=== PATIENT | female | born 1970 | race Caucasian/White ===

== ENCOUNTER 2017-11-08 17:19 | Emergency (ER) | payer OTHER ==
[~2017-11-08] VITALS: Ht 157.5 cm; Wt 71.7 kg
[2017-11-08 17:21] VITALS: BP 124/63
[2017-11-08] MEDS ORDERED: METF500T PO (17:25)
--- NOTE | 2017-11-08 17:27 | NUR ---
LANA AMBULATED TO BED 6.
--- NOTE | 2017-11-08 17:30 | NUR ---
REPORT GIVEN TO KORIN DARNELL.
--- NOTE | 2017-11-08 17:40 | NUR ---
EPIGASTRIC PAIN RADIATING TO LUQ AND LEFT FLANK AREA STARTING THIS MORNING AROUND 0900 ACCOMPANIED BY NAUSEA AND CHILLS, DENIES VOMITING HX DM
[2017-11-08 18:10] LABS: BASOPHILS % (AUTO) 0.4 % (0.0-2.0); EOSINOPHILS # (AUTO) 0.2 K/uL (0-0.4); EOSINOPHILS % (AUTO) 3.1 % (0.0-4.0); HEMATOCRIT 37.9 % (36-48); HEMOGLOBIN 12.8 g/dL (12.0-16.0); LYMPHOCYTES # (AUTO) 2.6 K/uL (2.5-16.5); LYMPHOCYTES % (AUTO) 35.8 % (20.5-51.1); MEAN CORPUSCULAR HEMOGLOBIN 30 pg (27-31); MEAN CORPUSCULAR HGB CONC 34 g/dL (33-37); MEAN CORPUSCULAR VOLUME 89.4 fL (80-94); MONOCYTES # (AUTO) 0.5 K/uL (0.8-1.0); MONOCYTES % (AUTO) 6.4 % (1.7-9.3); NEUTROPHILS # (AUTO) 3.9 K/uL (1.8-7.7); NEUTROPHILS % (AUTO) 54.3 % (42.2-75.2); PLATELET COUNT (AUTO) 263 K/uL (140-450); RED BLOOD CELL COUNT(AUTO) 4.24 MIL/uL (4.20-5.40); WHITE BLOOD COUNT (AUTO) 7.3 K/uL (4.8-10.8)
[2017-11-08] MEDS ORDERED: NACL 0.9% 1,000 ML IV ONE (18:15)
[2017-11-08] MEDS ORDERED: MORPHINE SULFATE 4 MG/ML SYR IVP ONE (18:15)
[2017-11-08] MEDS ORDERED: ONDANSETRON 4 MG/2 ML VIAL IVP ONE (18:15)
[2017-11-08 18:29] LABS: ANION GAP 10.5 (8-16); CARBON DIOXIDE 29.5 mmol/L (21-32); CREATININE 0.7 mg/dL (0.6-1.3)
[2017-11-08 18:35] LABS: ALBUMIN 3.3 g/dL (3.4-5.0); TOTAL BILIRUBIN 0.2 mg/dL (0.0-1.0)
--- NOTE | 2017-11-08 18:54 | NUR ---
PT APPEARS TO BE SLEEPING IN NO APPEARENT DISTRESS. RR EVEN AND UNLABORED
--- NOTE | 2017-11-08 19:17 | NUR ---
PT TAKEN TO CT SCAN VIA WHEELCHAIR.
--- NOTE | 2017-11-08 19:28 | NUR ---
PT RETURNED FROM CT SCAN VIA WHEEL CHAIR TO ER BED 6.
[2017-11-08 21:00] LABS: APPEARANCE,URINE SL CLOUDY (CLEAR); BILIRUBIN,URINE NEGATIVE (NEGATIVE); BLOOD, URINE NEGATIVE (NEGATIVE); COLOR,URINE YELLOW (YELLOW); LEUKOCYTE ESTERASE ,URINE NEGATIVE (NEGATIVE); NITRITE, URINE NEGATIVE (NEGATIVE); UGLUCOSE 3+ (NEGATIVE)
--- NOTE | 2017-11-08 21:40 | NUR ---
Dr. Ibrahim evaluating patient at bedside.
[2017-11-08 22:35] VITALS: BP 132/69
--- NOTE | 2017-11-08 22:35 | NUR ---
Patient discharged with v/s stable. Written and verbal after care instructions given and explained. Patient alert, oriented and verbalized understanding of instructions. Ambulatory with steady gait. All questions addressed prior to discharge. ID band removed. Patient advised to follow up with PMD. Rx of Ultram given. Patient educated on indication of medication including possible reaction and side effects. Opportunity to ask questions provided and answered.
== END 2017-11-08 22:35 | disposition home or self-care (01) ==
LOC: MED 17:19
DX: K57.90 Diverticulosis of intestine, part unspecified, without perforation or abscess without bleeding (principal); K80.20 Calculus of gallbladder without cholecystitis without obstruction; E11.9 Type 2 diabetes mellitus without complications; Z88.6 Allergy status to analgesic agent; Z79.84 Long term (current) use of oral hypoglycemic drugs
CPT/HCPCS: 36415; 74176; 80053; 81003; 81025; 82150; 83690; 84484; 85025; 93005; 96361; 96374; 96375; 99285; J2270; J2405

== ENCOUNTER 2018-10-11 13:38 | Emergency (ER) | payer SELFPAY ==
[~2018-10-11] VITALS: Ht 157.5 cm; Wt 71.3 kg
[~2018-10-11 13:38] MED LIST: METF500T PO
[2018-10-11 13:49] VITALS: BP 135/73
--- NOTE | 2018-10-11 14:05 | NUR ---
48 Y FEMALE BIB C/O FACIAL PAIN SINCE 06:00 THIS MORNING. PT REPORTS CONSTANT NUMBNESS ON LT SIDE OF FACE AT 6/10. PT STATES IT STARTED WITH HER EYE AND HAS SPREAD ACROSS WHOLE LT SIDE OF FACE TO BACK OF LT SHOULDER. PT REPORTS BLURRY VISION W/ LT EYE. LT EYE IS BLOOD SHOT. FACIAL SYMMETRY INTACT, HAND PATIENT ATTENDANT STRONG/EQUAL, SPEECH CLEAR, AAOX4, GAIT STEADY, PERRLA. VSS AT THIS TIME. BED IS DOWN, LOCKED, BED RAIL X 1, ERMD TO SEE PT. MEDHX:DM
--- NOTE | 2018-10-11 14:10 | NUR ---
ACCU CHECK 260, PT STATES SHE WAS DIAGNOSED IN 2011 WAS DM BUT DOES NOT CURRENTLY TAKE ANY MEDICATIONS
--- NOTE | 2018-10-11 14:16 | NUR ---
PT AMB TO RESTROOM WITH ASSISTANCE FOR URINE SAMPLE
--- NOTE | 2018-10-11 14:23 | NUR ---
DR ARGUETA AT BEDSIDE
--- NOTE | 2018-10-11 14:33 | NUR ---
PT BEING TAKEN TO CT
--- NOTE | 2018-10-11 14:48 | NUR ---
PT RETURNED FROM CT VIA WHEELCHAIR
[2018-10-11] MEDS ORDERED: KETOROLAC 60 MG/2 ML VIAL IM ONE (15:15)
[2018-10-11 15:34] VITALS: BP 142/76
--- NOTE | 2018-10-11 15:34 | NUR ---
Patient discharged with v/s stable. Written and verbal after care instructions given and explained. Patient alert, oriented and verbalized understanding of instructions. Ambulatory with steady gait. All questions addressed prior to discharge. ID band removed. Patient advised to follow up with PMD. Rx of KETOROLAC TROMETHAZINE, MOTRIN given. Patient educated on indication of medication including possible reaction and side effects. Opportunity to ask questions provided and answered.
== END 2018-10-11 15:34 | disposition home or self-care (01) ==
LOC: MED 13:38
DX: B30.9 Viral conjunctivitis, unspecified (principal); E11.9 Type 2 diabetes mellitus without complications; Z79.84 Long term (current) use of oral hypoglycemic drugs; Z88.5 Allergy status to narcotic agent; Z88.6 Allergy status to analgesic agent
CPT/HCPCS: 70450; 81002; 81025; 82948; 96372; 99284; J1885